=== PATIENT | male | born 1950 | race African-American/Black ===

== ENCOUNTER 2024-12-26 06:44 | Day surgery (SDC) | payer OTHER, SELFPAY ==
[2024-12-26] VITALS (7 sets, daily range): BP systolic 97–118; BP diastolic 56–65; BMI 31.6
[2024-12-26 07:47] LABS: Hematocrit 42.4 % (39.0-52.0); Hemoglobin 13.9 g/dL (13.0-18.0); Mean Corp Hgb Conc. 32.8 g/dL (33.0-37.0); Mean Corpuscular Volume 88.0 fL (80.0-94.0); Platelet Count 124 10^3/uL (130-400); Red Cell Dist. Width 14.9 % (11.5-14.5)
[2024-12-26 08:45] LABS: Blood Urea Nitrogen 43 mg/dl (9-20); Calcium 9.9 mg/dl (8.4-10.2); Carbon Dioxide 22 mmol/L (22-30); Chloride 106 mmol/L (98-107); Estimated Creatinine Clearance 27 ml/min; Glucose 100 mg/dl (70-99); Potassium 4.5 mmol/L (3.5-5.1); Sodium 135 mmol/L (135-145); eGFR 23.83
[2024-12-26 09:38] LABS: ACT-LR - POC > 397 Seconds (116-155)
--- NOTE | 2024-12-26 09:40 | ITS.CL.PN ---
Head Waitress - Procedure Note
Procedure
Procedure Note:
CARDIAC CATHETERIZATION REPORT
Date of Procedure: 12/26/2024
Referring: Dr. Oumar Newell MD
Indication: atypical angina, ischemic cardiomyopathy with severe proximal LAD disease
PROCEDURE(S)
1. left heart catheterization
2. coronary angiography
ACCESS: 7F right common femoral artery (closure: Perclose x1)
CATHETERS
1. 6F JR4
2. 6F JL4
MODERATE SEDATION: 25 minutes of moderate sedation was utilized. An independent biomedical engineering internship was present to assist with and help manage the patient's level of consciousness and physiologic status.
HEMODYNAMIC DATA
LV 109/8 (EDP 13) mmHg
AO 104/51 (mean 70) mmHg
CORONARY ANGIOGRAPHY
Dominance: left
LM: large with mild disease
LAD: large vessel with a proximal total occlusion. There are robust R-L collaterals including a well formed apical collateral from the RV marginal and numerous septal collaterals. There are faint L-L collateral from the circumflex filling the
diagonals.
LCx: large vessel giving rise to several small marginal branches and a large bifurcating OM3. There is mild non-obstructive disease.
RCA: large vessel giving rise to a moderate caliber acute marginal, moderate caliber RPDA, and several small RPL branches. There is moderate up to 40% disease in the distal RCA leading into the RPDA.
RADIATION: dose 283 mGy; DAP 16.5 Gy*cm2; fluoroscopy time 4.5 min
CONCLUSIONS
1. Single vessel obstructive coronary artery disease as described with total occlusion of the proximal LAD with well formed R-L and faint L-L collaterals. This is significantly changed from 07/2024 angiography at which time there was still robust
antegrade flow through the proximal LAD stenosis with only a faint R-L apical collateral.
2. Normal LV filling pressure and no aortic stenosis.
3. Of note, labs obtained this morning with Cr 2.7 (GFR 24)
RECOMMENDATION: Initial plan was for LAD PCI (with surgical MIDCAB backup) given angiography in 07/2024 demonstrating severe proximal LAD disease with minimal collateralization, large area at risk, and dyspneic symptoms felt to be consistent with
atypical angina. Given progression to chronic total occlusion with robust collateralization, I believe the risk:benefit calculation has unfortunately shifted and revascularization - either surgical or percutaneous - is no longer indicated. [employer] PCI
would subject the patient to higher risk for iatrogenic complications, including high risk for renal injury given his severe CKD. The territory appears to be robustly collateralized at this point. I do not think that LAD revascularization would
improve the patient's ability to safely tolerate any planned chemotherapy. I recommend ongoing optimal medical therapy for ischemic cardiomyopathy and heart failure with reduced ejection fraction as well as maximally tolerate anti-anginal therapy
for the patient's dyspneic symptoms which are felt to be an anginal equivalent. This was discussed with Dr. Oumar Newell (CT surgeon) who similarly does not believe that surgical revascularization in this setting would be beneficial.
Signed: Kameron Anderson MD, PhD
== END 2024-12-26 12:25 | disposition home or self-care (01) ==
LOC: CATH 06:44
PROVIDERS: ATTENDING PHYSICIAN Student in an Organized Health Care Education/Training Program
DX: I25.119 Atherosclerotic heart disease of native coronary artery with unspecified angina pectoris (principal); E11.9 Type 2 diabetes mellitus without complications; J44.9 Chronic obstructive pulmonary disease, unspecified; I25.10 Atherosclerotic heart disease of native coronary artery without angina pectoris; I25.2 Old myocardial infarction; I12.9 Hypertensive chronic kidney disease with stage 1 through stage 4 chronic kidney disease, or unspecified chronic kidney disease; E11.22 Type 2 diabetes mellitus with diabetic chronic kidney disease; N18.30 Chronic kidney disease, stage 3 unspecified; I25.5 Ischemic cardiomyopathy
CPT/HCPCS: 99152; 99153; 80048; 85027; 85347; 93458; C1760; C1894; Q9967